=== PATIENT | male | born 2000 | race Caucasian/White ===

== ENCOUNTER 2019-01-10 10:39 | Emergency (ER) | payer MEDICAID ==
[2019-01-10] MEDS ORDERED: IBUPROFEN 600 MG TABLET ONE (10:59)
== END 2019-01-10 11:32 | disposition home or self-care (01) ==
LOC: EDH 10:39
DX: S02.2XXA Fracture of nasal bones, initial encounter for closed fracture (principal); S93.401A Sprain of unspecified ligament of right ankle, initial encounter; J45.909 Unspecified asthma, uncomplicated; F31.9 Bipolar disorder, unspecified; F41.9 Anxiety disorder, unspecified; X50.1XXA Overexertion from prolonged static or awkward postures, initial encounter; Y93.02 Activity, running; Y92.89 Other specified places as the place of occurrence of the external cause; Y99.8 Other external cause status
CPT/HCPCS: 70160; 73610

== ENCOUNTER 2019-06-27 21:19 | Emergency (ER) | payer MEDICAID ==
[2019-06-27] MEDS ORDERED: LIDOCAINE HCL-MPF 1% 2ML VIAL ONE (23:08)
[2019-06-27] MEDS ORDERED: CEFTRIAXONE SODIUM 1 GM ONE (23:08)
== END 2019-06-27 23:26 | disposition home or self-care (01) ==
LOC: EEVIPCON 21:19 → EDH 21:19
DX: L03.114 Cellulitis of left upper limb (principal); F19.10 Other psychoactive substance abuse, uncomplicated; J45.909 Unspecified asthma, uncomplicated; F31.9 Bipolar disorder, unspecified; Z91.030 Bee allergy status; Z72.0 Tobacco use
CPT/HCPCS: 96372; 99283; 73090; J0696; J3490

== ENCOUNTER 2020-11-07 17:39 | Emergency (ER) | payer MEDICAID ==
[~2020-11-07] VITALS: Ht 180.3 cm; Wt 76.2 kg
== END 2020-11-07 19:25 | disposition left against medical advice (07) ==
LOC: EDH 17:39
DX: R09.81 Nasal congestion (principal); Z53.21 Procedure and treatment not carried out due to patient leaving prior to being seen by health care provider